=== PATIENT | male | born 1995 | race Caucasian/White ===

== ENCOUNTER 2017-11-17 18:22 | Emergency (ER) | payer MEDICAID ==
[~2017-11-17] VITALS: Ht 167.6 cm; Wt 64.0 kg
[~2017-11-17 18:22] MED LIST: LIBRIUM PO; LITH450T PO; RISP1TAB45 PO
[2017-11-17 18:25] VITALS: BP 140/85
[2017-11-17] MEDS ORDERED: AZITHROMYCIN 500 MG TABLET ONE (19:25)
[2017-11-17] MEDS ORDERED: CEFTRIAXONE 250 MG ONE (19:25)
[2017-11-17] MEDS ORDERED: CEFTRIAXONE 250 MG IM ONE (19:30)
[2017-11-17] MEDS ORDERED: AZITHROMYCIN 500 MG TABLET PO ONE (19:30)
[2017-11-17 19:33] LABS: MICROSCOPIC AUTO
[2017-11-17 19:34] LABS: CULTURE INDICATED? NO
== END 2017-11-17 19:39 | disposition home or self-care (01) ==
LOC: ED 19:05
DX: Z20.2 Contact with and (suspected) exposure to infections with a predominantly sexual mode of transmission (principal); F10.20 Alcohol dependence, uncomplicated; F17.200 Nicotine dependence, unspecified, uncomplicated
CPT/HCPCS: 81001; 87491; 87591; 96372; 99284; J0696

== ENCOUNTER 2017-12-06 23:08 | Emergency (ER) | payer MEDICAID ==
[~2017-12-06] VITALS: Ht 167.6 cm; Wt 64.2 kg
[2017-12-06 23:10] VITALS: BP 122/70
== END 2017-12-07 01:13 | disposition home or self-care (01) ==
LOC: ED 12-07 00:15
DX: S53.402A Unspecified sprain of left elbow, initial encounter (principal); J45.909 Unspecified asthma, uncomplicated; X58.XXXA Exposure to other specified factors, initial encounter; Y93.89 Activity, other specified; Y92.89 Other specified places as the place of occurrence of the external cause; Y99.8 Other external cause status
CPT/HCPCS: 29105; 99284